=== PATIENT | female | born 1980 | race African-American/Black ===

== ENCOUNTER 2016-11-12 12:36 | Emergency (ER) | payer OTHER ==
[2016-11-12 12:45] VITALS: BP 134/74; PULSE 73; TEMP 98.9; BMI 27.2
--- NOTE | 2016-11-12 12:47 | PDOC ---
Post Exposure HPI - General Chief Complaint: Non EmpBld/Body Flud Exposure Stated Complaint: NEEDLE STICK INJURY TO RIGHT THUMB AT WORK TODAY Time Seen by Provider: 11/12/16 12:45 History Source: Patient Exam Limitations: No Limitations - History of Present Illness Timing: just prior to arrival Severity: mild Exposed Location: Right: Finger(s) Assessing Significant Risk PEP: Yes Percutaneous Past History - Travel Traveled outside of the country in the last 30 days: No Close contact w/someone who was outside of country & ill: No - Past Medical History Allergies/Adverse Reactions: Allergies Allergy/AdvReac Type Severity Reaction Status Date / Time No Known Allergies Allergy Verified 11/12/16 12:38 Home Medications: Ambulatory Orders NK [No Known Home Medication] 11/12/16 Other medical history: PT DENIES - Surgical History Cholecystectomy: Yes Other Surgical History: 11/12/16 13:07 C section - Suicide/Smoking/Psychosocial Hx Smoking History: Never smoked Have you smoked in the past 12 months: No Information on smoking cessation initiated: No Hx Alcohol Use: No Drug/Substance Use Hx: No Substance Use Type: None General Medical PMHX - Other General PMHX Angina: No Cardiac Arrhythmia: No Arthritis: No GERD: No Glaucoma: No RI: No GI Ulcer Disease: No Peripheral Vascular Disease: No *Physical Exam - Vital Signs Last Vital Signs Temp Pulse Resp BP Pulse Ox 98.9 F 73 18 134/74 99 11/12/16 12:38 11/12/16 12:38 11/12/16 12:38 11/12/16 12:38 11/12/16 12:38 Post Exposure - ED Protocol - Exposure Treatment Washing/Decontamination: Soap/Water Source Patient HIV Status:: Unknown Is PEP indicated?: No Prophylaxis for HIV discussed?: Yes Prophylaxis given?: No Prophylaxis refused?: No Drug(s) Information Sheets given:: No Baseline bloods drawn prophylaxis:(use *Exposure-Hosp Emp): Yes - Referrals Employee Referred to Infectious Disease Specialist:: Wilma Trent [facility] Worker referred to Infection Control Dept.: No Other Post Exposure pt. referral to PCP: No Medical Decision Making - Medical Decision Making 11/12/16 13:08 36 yo healthy F s/p needle stick injury She was stuck by a blood glucose needle She removed the blood glucose needle and stuck herself She washed the area immediately I have contacted Shania at [facility] She states, this patient most likely DOES NOT have HIV or Hep C This has NOT been confirmed to them on ANY recent testing Case reviewed with Dr Trent He states that hospital policy is that patients be started on PEP *DC/Admit/Observation/Transfer Diagnosis at time of Disposition: Needle stick injury of finger of right hand Qualifiers: Encounter type: initial encounter Qualified Code(s): S61.239A - Puncture wound without foreign body of unspecified finger without damage to nail, initial encounter - Discharge Dispostion Disposition: HOME Condition at time of disposition: Stable Admit: No - Referrals Referrals: Wilma Trent MD [Staff Physician] - - Patient Instructions Printed Discharge Instructions: How to Handle Body Fluid Exposure -- Non- Healthcare Worker (At Home, Caregi Additional Instructions: Thank you for coming in to the ER You MUST follow up with Dr Trent for further management Please return to the ER for any other concerns or complaints - Post Discharge Activity Forms/Work/School Notes: Back to Work
[2016-11-12] MEDS ORDERED: TETANUS AND DIPHTHERIA TOXOID 0.5 ML DISP.SYRIN IM ONE (13:14)
[2016-11-12] MEDS ORDERED: RALTEGRAVIR POTASSIUM 400 MG TAB PO ONE (13:14)
[2016-11-12] MEDS ORDERED: EMTRICITABINE 200MG/TENOFOVIR 300MG PO ONE (13:14)
[2016-11-12] MEDS ORDERED: HIV POST EXPOSURE PROPHYLAXIS KIT PO ONE (13:26)
[2016-11-12 13:40] LABS: BASOPHIL 1.2 % (0-2.0); EOSINOPHIL 0.1 % (0-4.5); MCH 31.1 pg (25.7-33.7); MCHC 33.7 g/dl (32.0-36.0); MEAN CELL VOLUME 92.3 fl (80-96); NEUTROPHILS 60.7 % (42.8-82.8); PLATELET COUNT 223 K/MM3 (134-434); RDW 12.8 % (11.6-15.6); WHITE BLOOD COUNT 4.7 K/mm3 (4.0-10.8)
[2016-11-12 13:59] LABS: ALBUMIN 4.5 g/dl (3.5-5.0); ALK PHOS 47 U/L (32-92); ANION GAP 4 (8-16); CALCIUM 9.2 mg/dl (8.4-10.2); CHOLESTEROL 182 mg/dl; CO2 25 mmol/L (22-28); CREATININE 0.7 mg/dl (0.6-1.3); GLUCOSE,RANDOM 87 mg/dl (74-106); LDH 223 U/L (91-180); PHOSPHOROUS 3.7 mg/dl (2.5-4.6); SGOT/AST 18 U/L (10-42); SGPT/ALT 10 U/L (10-40); TOT PROT 7.7 g/dl (6.4-8.3); URIC ACID 4.8 mg/dl (2.6-7.2)
[2016-11-12 16:45] LABS: HIV 1 & 2 AB NEGATIVE; HIV 1 AGp24 NEGATIVE
== END 2016-11-12 13:36 | disposition home or self-care (01) ==
LOC: FER 12:36
PROC: 3E0234Z Introduction of Serum, Toxoid and Vaccine into Muscle, Percutaneous Approach (ICD-10-PCS; principal; 2016-11-12)
DX: S61.239A Puncture wound without foreign body of unspecified finger without damage to nail, initial encounter (principal); X58.XXXA Exposure to other specified factors, initial encounter; Y93.89 Activity, other specified; Y92.239 Unspecified place in hospital as the place of occurrence of the external cause; Y99.0 Civilian activity done for income or pay
CPT/HCPCS: 36415; 80053; 82465; 82977; 83615; 84100; 84478; 84550; 85025; 86704; 86706; 86803; 87340; 87389; 99283-25